=== PATIENT | female | born 1945 | race African-American/Black ===

== ENCOUNTER → 2017-05-10 | Outpatient (CLI) | payer OTHER ==
[2015-10-26 09:19] VITALS: BP 158/83
[~2017-05-10] MED LIST: BIATIN PO; CALC600T4 PO; CINN500C2 PO; HYDR-2678 PO; LATA2.5D3 EACHEYE; OMEP20CA5 PO; OMEP20TA63 PO; PANT40GR PO; sugar blocker PO
--- NOTE | 2017-05-10 13:49 | KCIC ---
Bilateral digital screening mammograms: Reason for examination: Routine screening. Comparison is made to previous studies dated back to 04/05/2011. The skin and nipples show no abnormalities. No abnormal axillary lymph nodes are seen. The breast parenchyma shows scattered fibroglandular density. (Breast density: Category B.) There appears to be some nodularity developing at approximately the 3:00/4:00 C position of the left breast. These may represent intramammary lymph nodes. Further evaluation with ultrasound is recommended. There are no other new dominant masses, suspicious calcifications or architectural distortions. Impression: Nodular densities posterior laterally in the left breast at approximately the 3:00 to 4:00 position. Recommend further evaluation with ultrasound. BI-RADS Category 0: Incomplete. Ultrasound follow-up is recommended. "Our facility is accredited by the [employer] Mammography [employer]." This patient's information has been entered into a reminder system for the patient to be notified with the results of her examination and a target date for the next mammogram. Electronically signed by: Doretha Johnson MD (05/10/2017 1:46 PM)
== END | disposition home or self-care (01) ==
LOC: KCIC MAMMO 09:33
PROVIDERS: ATTEND Family Medicine
DX: Z12.31 Encounter for screening mammogram for malignant neoplasm of breast (principal)
CPT/HCPCS: G0202; 77067

== ENCOUNTER → 2017-05-16 | Outpatient (CLI) | payer OTHER ==
[2015-10-26 09:19] VITALS: BP 158/83
--- NOTE | 2017-05-16 09:20 | RAD ---
Indication: Abnormal mammogram on 05/10/2017. States performed for further evaluation. Correlation is made with mammogram from 05/10/2017. Sonographic interrogation of the lower outer left breast was performed. There is a slightly lobulated hypoechoic nodule at the 4:00 location of the left breast, 8 cm from the nipple. This measures 6 mm x 6 mm is x 6 mm. This does appear to be slightly taller than it is wide. No posterior acoustic shadowing is seen, however, no significant posterior acoustic enhancement is identified either. No other masses are seen. Impression: Hypoechoic slightly irregular mass at the 4:00 location of the left breast, likely accounting for the mammographic abnormality. The features are somewhat concerning and further evaluation with tissue sampling is recommended. BI-RADS Category 4
== END | disposition home or self-care (01) ==
LOC: US 07:55
PROVIDERS: ATTEND Family Medicine
DX: R92.8 Other abnormal and inconclusive findings on diagnostic imaging of breast (principal)
CPT/HCPCS: 76641

== ENCOUNTER → 2017-06-05 | Outpatient (CLI) | payer OTHER ==
[~2017-06-05] VITALS: Ht 165.1 cm; Wt 98.4 kg
[~2017-06-05] MED LIST changes: +PANT40TA3 PO
[2017-06-05 12:42] VITALS: BP 152/72
--- NOTE | 2017-06-05 14:05 | RAD ---
Indication anticipated breast biopsy. Note is made of recent examinations 05/10 and 05/16/2017. A biopsy was recommended targeted to a mass at the 3:30 position of the left breast approximately 8 cm from the nipple. In anticipation of sampling preliminary ultrasound images were obtained. The well-defined mass in the left breast is reproduced. On today's examination this has an appearance most compatible with a cyst with an associated septation. The ultrasound features do not demonstrate aggressive features. I explained to the patient that the mass was likely a septated cyst and that the mass had benign features. I indicated to the patient that we could certainly introduce a needle and attempt aspiration. If no fluid was obtained we could then follow this up with a biopsy. (I do believe the mass is probably benign). The patient decided that she did not want intervention at this time but would follow-up the mass in the left breast with an ultrasound in 6 months. IMPRESSION: Probable benign mass left breast. Follow-up ultrasound in 6 months advised. BI-RADS 3. Probably benign
== END | disposition home or self-care (01) ==
LOC: US 14:31
PROVIDERS: ATTEND Surgery
DX: R92.8 Other abnormal and inconclusive findings on diagnostic imaging of breast (principal)
CPT/HCPCS: 76641

== ENCOUNTER → 2018-07-04 | Outpatient (CLI) | payer OTHER ==
[2017-06-05 12:42] VITALS: BP 152/72
--- NOTE | 2018-07-04 13:21 | KCIC ---
Bilateral diagnostic digital mammograms with 3-D tomosynthesis: Reason for examination: Follow-up nodule. Comparison is made to previous studies dated 05/10/2017 and 10/25/2016. Bilateral mammograms in CC and oblique projections were obtained with 2-D imaging and 3-D tomosynthesis imaging on a Siemens Inspiration unit and reviewed on the workstation. Interpretation was made with the benefit of CAD. The skin and nipples show no abnormalities. No abnormal axillary lymph nodes are seen. The breast parenchyma shows scattered fatty and fibroglandular density. (Breast density: Category B.) There are no dominant masses, suspicious calcifications or architectural distortion. Biopsy clips remain present on the left. Impression: No evidence of malignancy. Recommend routine screening. BI-RAD Category 1: Negative. "Our facility is accredited by the [employer] Mammography [employer]." This patient's information has been entered into a reminder system for the patient to be notified with the results of her examination and a target date for the next mammogram. Electronically signed by: Doretha Johnson MD (07/04/2018 1:17 PM) [id number]
== END | disposition home or self-care (01) ==
LOC: KCIC MAMMO 08:41
PROVIDERS: ATTEND Family Medicine
DX: R92.8 Other abnormal and inconclusive findings on diagnostic imaging of breast (principal); I10 Essential (primary) hypertension; K21.9 Gastro-esophageal reflux disease without esophagitis
CPT/HCPCS: 77066; G0279; 77062

== ENCOUNTER → 2019-07-14 | Outpatient (CLI) | payer OTHER ==
[2017-06-05 12:42] VITALS: BP 152/72
[~2019-07-14] MED LIST changes: -PANT40TA3 PO; +PANT40TA77 PO
--- NOTE | 2019-07-14 13:46 | KCIC ---
Bilateral digital screening mammograms and tomosynthesis Reason for examination: Routine screening. History of benign left breast biopsy. Family history of breast cancer of the patient's sister. Comparison is made to previous study dated mammogram July 04, 2018 and priors Routine CC and MLO digital views obtained. Interpretation was made with the benefit of CAD. The skin and nipples show no abnormalities. No abnormal lymph nodes are seen. The breast parenchyma is scattered fibroglandular elements. (Breast density: Category B.) There are no suspicious masses, suspicious calcifications or architectural distortions. Mild nodularity of the glandular tissue is stable. There is a small intramammary lymph node of the right upper outer breast, stable. Left breast biopsy clips. Left breast benign calcification. Impression: Negative mammogram. Recommend routine screening. BI-RADS Category 2: Benign. "Our facility is accredited by the [employer] Mammography [employer]." This patient's information has been entered into a reminder system for the patient to be notified with the results of her examination and a target date for the next mammogram. Electronically signed by: Haile Edwards MD (07/14/2019 1:43 PM) [id number]
== END | disposition home or self-care (01) ==
LOC: KCIC MAMMO 08:08
PROVIDERS: ATTEND Family Medicine
DX: Z12.31 Encounter for screening mammogram for malignant neoplasm of breast (principal); N64.89 Other specified disorders of breast; Z80.3 Family history of malignant neoplasm of breast
CPT/HCPCS: 77063; 77067

== ENCOUNTER → 2020-07-18 | Outpatient (CLI) | payer MEDICARE ==
[2017-06-05 12:42] VITALS: BP 152/72
[~2020-07-18] MED LIST changes: -CALC600T4 PO; +CALC600T6 PO
--- NOTE | 2020-07-19 09:02 | KCIC ---
BILATERAL SCREENING MAMMOGRAM, 3-D History: Routine screening. Comparison: Bilateral mammogram April 13, 2019 and back to 2016. Technique: MLO and CC digital tomosynthesis (3D) images obtained. Radiologist reviewed these images on dedicated workstation. Findings: Breast Tissue Density B : There are scattered areas of fibroglandular density. Left breast biopsy clips. Bilateral glandular nodularity is stable. There are no dominant masses, suspicious microcalcifications, or architectural distortion. IMPRESSION: No mammographic evidence of malignancy. Recommend routine screening. BI-RADS category 2: Benign findings. The images were reviewed with computer-aided detection. Patient information is entered into reminder system with a target due date for the next screening mammogram. Mammography is the most sensitive method for finding small breast cancers, but it does not detect them all and is not a substitute for careful clinical examination. A negative mammogram does not negate a clinically suspicious finding and should not result in delay in biopsying a clinically suspicious abnormality. "Our facility is accredited by the [employer]ammography [employer]." Electronically signed by: Santos Miguel MD (07/19/2020 8:59 AM) [email or web address]
== END | disposition home or self-care (01) ==
LOC: KCIC MAMMO 08:39
PROVIDERS: ATTEND Nurse Practitioner Family
DX: Z12.31 Encounter for screening mammogram for malignant neoplasm of breast (principal)
CPT/HCPCS: 77063; 77067

== ENCOUNTER → 2021-10-23 | Outpatient (CLI) | payer MEDICARE ==
[2017-06-05 12:42] VITALS: BP 152/72
[~2021-10-23] MED LIST changes: -CALC600T6 PO; +CALC600T60 PO
--- NOTE | 2021-10-23 12:41 | KCIC ---
Bilateral digital screening mammograms with 3-D tomosynthesis: Reason for examination: Routine screening. Comparison is made to previous studies dated back to 03/27/2016. Bilateral mammograms in CC and oblique projections were obtained with 2-D imaging and 3-D tomosynthes is imaging on a Siemens Inspiration unit and reviewed on the workstation. Interpretation was made wit h the benefit of CAD. The skin and nipples show no abnormalities. No abnormal axillary lymph nodes are seen. The breast par enchyma shows scattered fatty and fibroglandular density. (Breast density: Category B.) There is a no dular densities at approximately the 3:00 C position 12 cm from the nipple and at the 3:00 position a pproximately 6 cm from the nipple in the left breast. Recommend further evaluation with ultrasound. T here are no other new dominant masses, suspicious calcifications or architectural distortion. Benign calcifications are present. Biopsy clips remain present on the left. Impression: Nodular densities at the 3:00 B and C position of the left breast. Recommend further evaluation with ultrasound. BI-RAD Category 0: Incomplete. Needs additional imaging evaluation. "Our facility is accredited by the [employer] Mammography Program." This patient's information has been entered into a reminder system for the patient to be notified wit h the results of her examination and a target date for the next mammogram. Electronically signed by: Doretha Johnson MD (10/23/2021 12:39 PM) [email or web address]
== END ==
LOC: KCIC MAMMO 10:18
PROVIDERS: ATTEND Family Medicine
DX: Z12.31 Encounter for screening mammogram for malignant neoplasm of breast (principal)
CPT/HCPCS: 77063; 77067

== ENCOUNTER → 2021-11-15 | Outpatient (CLI) | payer MEDICARE ==
[2017-06-05 12:42] VITALS: BP 152/72
--- NOTE | 2021-11-15 08:39 | KCIC ---
Left breast ultrasound: Reason for examination: Nodular densities on screening mammogram. Comparison is made to mammographic exam dated 10/23/2021. Ultrasound examination of the left breast and axilla was performed. At the 3:00 position 10.5 cm from the nipple, there is a 7.7 mm hypoechoic circumscribed lesion with a fibrocystic appearance. At the 3:00 position 11 cm from the nipple, there is a 6.1 mm hypoechoic ci rcumscribed lesion with a fibrocystic appearance. At the 3:00 position 6 cm from the nipple, there is some minimal fibrocystic change. No suspicious lesions are seen in the left breast. No abnormal appe aring lymph nodes are seen in the left axilla. IMPRESSION: Small benign-appearing fibrocystic type lesions at the 3:00 position 10.5 cm and 11 cm from the nippl e corresponding with the nodularity seen posteriorly in the mammographic exam. Some minimal fibrocyst ic change at the 3:00 position 6 cm from the nipple which probably corresponds to the area of nodular ity more anteriorly in the left breast mammographically. No grossly suspicious lesions are seen. Cezar mmend 6 month follow-up with ultrasound. BI-RADS Category 3: Probably Benign. "Our facility is accredited by the [employer] Mammography [employer]." This patient's information has been entered into a reminder system for the patient to be notified wit h the results of her examination and a target date for the next mammogram. Electronically signed by: Doretha Johnson MD (11/15/2021 8:36 AM) [email or web address]
== END ==
LOC: KCIC US 07:53
PROVIDERS: ATTEND Family Medicine
DX: N64.89 Other specified disorders of breast (principal)
CPT/HCPCS: 76641